=== PATIENT | female | born 2000 | race Caucasian/White ===

== ENCOUNTER 2022-04-30 13:04 | Emergency (ER) | payer OTHER ==
[~2022-04-30] VITALS: Ht 165.1 cm; Wt 47.2 kg
[2022-04-30] MEDS ORDERED: PRENATAL + DHA1 EAC1 PO (13:27)
[2022-04-30] MEDS ORDERED: ONDANSETRON ODT8 MG PO (16:51)
[2022-04-30] MEDS ORDERED: PEPCID AC20 MG PO (16:52)
== END 2022-04-30 17:03 | disposition home or self-care (01) ==
LOC: ER 13:04
DX: O99.611 Diseases of the digestive system complicating pregnancy, first trimester (principal); Z3A.08 8 weeks gestation of pregnancy; K29.70 Gastritis, unspecified, without bleeding

== ENCOUNTER 2022-07-21 07:59 | Outpatient (CLI) | payer OTHER ==
[~2022-07-21 07:59] MED LIST: ONDANSETRON ODT8 MG PO; PEPCID AC20 MG PO; PRENATAL + DHA1 EAC1 PO
== END 2022-07-21 09:31 | disposition home or self-care (01) ==
LOC: PRENATAL 07:59
PROVIDERS: ATTEND Obstetrics & Gynecology Maternal & Fetal Medicine
DX: O35.9XX0 Maternal care for (suspected) fetal abnormality and damage, unspecified, not applicable or unspecified (principal); O35.3XX0 Maternal care for (suspected) damage to fetus from viral disease in mother, not applicable or unspecified; Z3A.20 20 weeks gestation of pregnancy

== ENCOUNTER 2022-11-22 09:22 | Inpatient (IN) | payer OTHER ==
[~2022-11-22] VITALS: Ht 165.1 cm; Wt 60.8 kg
== END 2022-11-24 11:36 | disposition home or self-care (01) | DRG 807 ==
LOC: LDR 09:22 → OB/GYN 15:46
PROVIDERS: ADMIT Obstetrics & Gynecology; ATTEND Obstetrics & Gynecology
PROC: 10E0XZZ Delivery of Products of Conception, External Approach (ICD-10-PCS; principal; 2022-11-22)
PROC: 0KQM0ZZ Repair Perineum Muscle, Open Approach (ICD-10-PCS; 2022-11-22)
PROC: 4A1HXCZ Monitoring of Products of Conception, Cardiac Rate, External Approach (ICD-10-PCS; 2022-11-22)
DX: O70.1 Second degree perineal laceration during delivery (principal); Z37.0 Single live birth; Z3A.38 38 weeks gestation of pregnancy; Z20.822 Contact with and (suspected) exposure to COVID-19

== ENCOUNTER 2025-04-09 14:47 | Emergency (ER) | payer OTHER ==
[~2025-04-09] VITALS: Ht 165.1 cm; Wt 52.2 kg
[2025-04-09] MEDS ORDERED: 0.9 % SODIUM CHLORIDE 1,000 ML IV STA (17:58)
[2025-04-09 18:46] LABS: URINE APPEARANCE Clear; URINE BILIRRUBIN Negative (NEGATIVE); URINE BLOOD Moderate; URINE COLOR Yellow; URINE GLUCOSE Negative (NEGATIVE); URINE KETONE Trace (NEGATIVE); URINE LEUKOCYTE Trace; URINE NITRATE Negative; URINE PROTEIN Trace (NEGATIVE); URINE UROBILINOGEN 1.0 E.U./dl
[2025-04-09 18:47] LABS: BASO % 0.4 % (0.1-1.2); EOS # 0.05 (0.04-0.54); EOS % 0.6 % (0.7-7.0); LYMPH # 2.70 (1.18-3.74); LYMPH % 29.8 % (19.3-53.1); MEAN PLATELET VOLUME 10.00 fl (9.4-12.4); MONO # 0.48 (0.24-0.82); MONO % 5.3 % (4.7-12.5); NEUT # 5.76 (1.56-6.13); NEUT % 63.7 % (34.0-71.1); RED CELL DISTRIBUTION WIDTH 11.7 % (11.6-14.4)
[2025-04-09 18:50] LABS: URINE BACTERIA 3796.4 uL (0.0-1933); URINE EPITHELIAL CELLS 29.9 uL (0.0-38.8); URINE RBC 11.4 uL (0.0-20.8); URINE WBC 8.3 uL (0.0-23.2)
[2025-04-09 19:02] LABS: URINE CAST 0.87 uL (0.0-1.40); URINE MUCUS MODERATE
[2025-04-09 19:40] LABS: BUN CREA RATIO 14.0 (7.0-25.0); CREATININE SERUM 0.69 mg/dL (0.55-1.02); GFR 104.52; GLUCOSE FASTING 77.0 mg/dL (65-100); OSMOLALITY SERUM 277.0 MOSM/KG (275-295)
[2025-04-09 20:25] LABS: HCG QUANTITATIVE 53708.0 mUI/mL (1-3)
== END 2025-04-09 19:46 | disposition home or self-care (01) ==
LOC: ER 14:47
DX: O26.851 Spotting complicating pregnancy, first trimester (principal); Z3A.01 Less than 8 weeks gestation of pregnancy

== ENCOUNTER 2025-07-10 14:34 | Outpatient (CLI) | payer OTHER | END 2025-07-10 14:36 | disposition home or self-care (01) | LOC: PRENATAL 14:34 | PROVIDERS: ATTEND Obstetrics & Gynecology Maternal & Fetal Medicine | DX: O44.02 Complete placenta previa NOS or without hemorrhage, second trimester (principal); Z3A.19 19 weeks gestation of pregnancy ==